=== PATIENT | male | born 1945 | race Caucasian/White ===

== ENCOUNTER 2019-12-03 05:39 | Day surgery (SDC) | payer MEDICARE, OTHER ==
[2019-12-01 16:25] LABS: BASOPHILS % (AUTO) 0.4 % (0-1); EOSINOPHILS # (AUTO) 0.1 X10'3 (0-0.9); EOSINOPHILS % (AUTO) 1.4 % (0-6); LYMPHOCYTES # (AUTO) 1.2 X10'3 (1.1-4.8); LYMPHOCYTES % (AUTO) 25.5 % (21-51); MEAN CORPUSCULAR HEMOGLOBIN 31.5 PG (27.0-31.0); MEAN CORPUSCULAR HGB CONC 34.7 g/dL (33.0-36.5); MEAN CORPUSCULAR VOLUME 90.8 FL (78-98); MEAN PLATELET VOLUME 7.1 FL (7.4-10.4); MONOCYTES # (AUTO) 0.4 X10'3 (0-0.9); MONOCYTES % (AUTO) 7.5 % (2-12); NEUTROPHILS # (AUTO) 3.2 X10'3 (1.8-7.7); NEUTROPHILS % (AUTO) 65.2 % (42-75); PRE OP HEMATOCRIT 39.2 % (42.0-52.0); PRE OP HEMOGLOBIN 13.6 g/dL (14.0-17.9); PRE OP PLATELET COUNT 216 X10'3 (140-440); RED BLOOD COUNT 4.32 X10'6 (4.70-6.10); RED CELL DISTRIBUTION WIDTH 13.1 % (11.5-14.5)
[2019-12-01 16:26] LABS: CLARITY,URINE SLIGHTLY CLOUDY (Clear); COLOR,URINE YELLOW (Yellow); GLUCOSE, URINE NEGATIVE (Neg); KETONES,URINE NEGATIVE (Neg); LEUKOCYTE ESTERASE ,URINE NEGATIVE (Neg); NITRITES, URINE NEGATIVE (Neg); OCCULT BLOOD,URINE NEGATIVE (Neg); PROTEIN,URINE NEGATIVE (Neg); UROBILINOGEN,URINE 0.2 E.U/dL (0.2-1.0)
[2019-12-01 16:30] LABS: UA COLLECTION TYPE VOIDED
[2019-12-01 16:36] LABS: MUCUS STRANDS MANY /LPF (Neg); SQUAMOUS EPITHELIAL CELL,UR FEW /LPF (FEW); TRANSITIONAL EPI CELLS,URINE FEW /HPF
[2019-12-01 16:37] LABS: BACTERIA,URINE NONE SEEN /HPF (Neg); RBC,URINE 0-2 /HPF (0-2); WBC,URINE 0-4 /HPF (0-4)
[2019-12-01 16:43] LABS: ALBUMIN 3.8 G/DL (3.4-5.0); ALBUMIN/GLOBULIN RATIO 1.2 (1.1-1.5); ALKALINE PHOSPHATASE 92 IU/L (46-116); BLOOD UREA NITROGEN 17 MG/DL (7-18); BUN/CREATININE RATIO 18.7 (5.4-32.0); CHLORIDE 107 MMOL/L (99-107); CREATININE 0.91 MG/DL (0.60-1.10); PRE OP ALT 20 U/L (30-65); PRE OP ANION GAP 8 (8-16); PRE OP AST 17 U/L (10-37); PRE OP BILIRUB, TOTAL 0.4 MG/DL (0.0-1.0); PRE OP GLUCOSE 95 MG/DL (70-104); PRE OP POTASSIUM 4.3 MMOL/L (3.4-5.1); PRE OP SODIUM 142 MMOL/L (135-145); TOTAL CARBON DIOXIDE 27.5 MMOL/L (24-32); TOTAL PROTEIN 7.1 G/DL (6.4-8.2); eGFR 81 ML/MIN
[2019-12-03] VITALS (17 sets, daily range): BP systolic 104–141; BP diastolic 63–87
[~2019-12-03] VITALS: Ht 177.8 cm; Wt 109.0 kg
[~2019-12-03 05:39] MED LIST: APIX5TAB3 PO; BUPR75TA3 PO; BUSP5TAB3 PO; CITA40TA11 PO; DOCUMENT DATE & TIME OF BETA-BLOCKER PO ONE; FINA5TAB11 PO; FLO0.4C PO; FLUD0.1T PO; OMEP20CA15 PO; OXYB5TAB16 PO; SIMV40TA PO; SOTA80TA PO; [UNRECOGNIZED DRUG - CODE] PO; cefazolin/dext.iso 2gm/100ml 100 ML IV ONE; famotidine 10mg tablet PO ONE; ringers solution, lacted 1,000 ML IV SCH
[2019-12-03] MEDS ORDERED: LIDOcaine 1% (10mg/ml) 2ml vial ONE (06:10)
[2019-12-03] MEDS ORDERED: BUPIVAcaine/PF 2.5mg/ml (0.25%) 10ml vial ONE (06:44)
[2019-12-03] MEDS ORDERED: ceFAZolin 1000mg inj ONE ×4 (06:44→11:08)
[2019-12-03 07:34] LABS: PRE OP PARTIAL THROMB. TIME 27 SECONDS (22-32)
[2019-12-03] MEDS ORDERED: BUPIVAcaine/PF 2.5 mg/ml (0.25%) 30ml vial ONE ×2 (10:28→10:39)
[2019-12-03] MEDS ORDERED: bacitracin 15gm ointment TP ONE (10:28)
[2019-12-03] MEDS ORDERED: sevoflurane 250ml liquid IH ONE (10:40)
[2019-12-03] MEDS ORDERED: fentaNYL /PF 50mcg/ml 5ml ampule ONE (10:46)
[2019-12-03] MEDS ORDERED: ringers solution, lacted 1,000 ML IV SCH (11:24)
[2019-12-03] MEDS ORDERED: ondansetron/PF 4mg/2ml inj IV PRN (11:25)
[2019-12-03] MEDS ORDERED: HYDROmorphone inj. 0.5 MG/0.5 ML DISP.SYRIN IV PRN (11:25)
[2019-12-03] MEDS ORDERED: ondansetron/PF 4mg/2ml inj ONE (11:30)
[2019-12-03] MEDS ORDERED: rocuronium 10mg/ml inj IV ONE (11:30)
[2019-12-03] MEDS ORDERED: LIDOcaine 2% (20mg/ml) 5ml vial ONE (11:30)
[2019-12-03] MEDS ORDERED: glycopyrrolate 0.2mg/ml inj ONE (11:30)
[2019-12-03] MEDS ORDERED: dexamethasone sod phosphate 4mg/ml inj. ONE (11:30)
[2019-12-03] MEDS ORDERED: neostigmine methylsulfate 1 MG/ML 10ml vial ONE (11:30)
[2019-12-03] MEDS ORDERED: acetaminophen 1,000mg/100ml IV 100 ML IV ONE (11:31)
[2019-12-03] MEDS ORDERED: propofol inj 20 ML IV ONE (11:31)
--- NOTE | 2019-12-03 11:45 | NUR ---
Received from OR via BED , accompanied by Anesthesiologist DR GROSS and report given by Anesthesiolgist. PATIENT WAKING UP, DENIES PAIN, V/S WNL, NEUROVASCULAR CHECKS INTACT, 20G PIV LUE, SCD ON, BANDAIDS TO LAP SIGHTS OF ABDOMEN CDI.
[2019-12-03] MEDS: HYDROmorphone inj. 0.5 MG/0.5 ML DISP.SYRIN IV PRN ×2 (12:24→12:41)
--- NOTE | 2019-12-03 12:34 | NUR ---
SPOKE WITH CHERYL AT DR PRINCE OFFICE WHO STATED SHE WILL SEND SCRIPTS OVER TO PATIENTS REQUESTED PHARMACY AT [facility].
[2019-12-03] MEDS: morphine 4 MG/ML inj SYRINge IV PRN ×2 (13:10→13:13)
--- NOTE | 2019-12-03 13:20 | NUR ---
PATIENT STILL PAINFUL AND UNABLE TO PEE YET. ENCOURAGED FLUIDS AND MEDS GIVEN SEE EMAR
--- NOTE | 2019-12-03 15:35 | NUR ---
PATIENT A&OX4, STATES PAIN WELL CONTROLLED NOW. STATED HE WANTED TO GO HOME BUT WAS UNABLE TO PEE. ORDERS BY DR GREGG TO PLACE [facility] WAS DONE WITH 550CC URINE RETURN PATIENT WAS UNABLE TO PEE. INSTRUCTIONS ON F/C CARE GIVEN TO PATIENT AND FAMILY. 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 PIV D/C. BANDAIDS TO ABDOMEN CDI. PATIENT INSTRUCTED TO SEE DR GREGG IN OFFICE IN 48 HOURS TO HAVE F/C D/C AND STATED HE UNDERSTANDS. HE WAS ALSO INSTRUCTED TO RESTART [facility] IN AM. I HAVE REVIEWED D/C INSTRUCTIONS WITH PATIENT AND FAMILY AND THEY HAVE VERBALIZED UNDERSTANDING. PATIENT D/C HOME WITH ALL BELONGINGS AND FAMILY GAVE TRANSPORT HOME.
== END 2019-12-03 15:35 | disposition home or self-care (01) ==
LOC: PAS 05:39
PROVIDERS: ATTEND Surgery
DX: K42.9 Umbilical hernia without obstruction or gangrene (principal); F43.10 Post-traumatic stress disorder, unspecified; K21.9 Gastro-esophageal reflux disease without esophagitis; I10 Essential (primary) hypertension; G47.33 Obstructive sleep apnea (adult) (pediatric); E78.00 Pure hypercholesterolemia, unspecified; I25.10 Atherosclerotic heart disease of native coronary artery without angina pectoris; I48.91 Unspecified atrial fibrillation; N40.0 Benign prostatic hyperplasia without lower urinary tract symptoms; Z95.0 Presence of cardiac pacemaker; Z98.890 Other specified postprocedural states; Z96.659 Presence of unspecified artificial knee joint; Z88.0 Allergy status to penicillin; Z79.899 Other long term (current) drug therapy; Z72.89 Other problems related to lifestyle; Z80.42 Family history of malignant neoplasm of prostate; Z83.3 Family history of diabetes mellitus
CPT/HCPCS: 36415; 49652; 80053; 81001; 82948; 85025; 85610; 85730; 93005; C1758; C1781; J0131; J0690; J1100; J1170; J2001; J2270; J2405; J2704; J2710; J3010; J3490; J7120; A4215; A4618; A7000

== ENCOUNTER 2024-06-22 10:49 | Emergency (ER) | payer MEDICARE, OTHER ==
[~2024-06-22] VITALS: Ht 177.8 cm; Wt 100.0 kg
[~2024-06-22 10:49] MED LIST changes: -CITA40TA11 PO; +CITA40TA32 PO; -DOCUMENT DATE & TIME OF BETA-BLOCKER PO ONE; -OXYB5TAB16 PO; +OXYB5TAB21 PO; +SIMV-343 PO; -SIMV40TA PO; +[UNRECOGNIZED DRUG - CODE] PO; -[UNRECOGNIZED DRUG - CODE] PO; -cefazolin/dext.iso 2gm/100ml 100 ML IV ONE; -famotidine 10mg tablet PO ONE; -ringers solution, lacted 1,000 ML IV SCH
[2024-06-22 11:59] LABS: BASOPHILS % (AUTO) 0.4 % (0-1); EOSINOPHILS # (AUTO) 0.1 X10'3 (0-0.9); EOSINOPHILS % (AUTO) 2.3 % (0-6); HEMOGLOBIN 12.6 g/dl (14.0-17.9); LYMPHOCYTES # (AUTO) 0.8 X10'3 (1.1-4.8); LYMPHOCYTES % (AUTO) 14.1 % (21-51); MEAN CORPUSCULAR HEMOGLOBIN 30.6 PG (27.0-31.0); MEAN CORPUSCULAR HGB CONC 33.2 g/dL (33.0-36.5); MEAN CORPUSCULAR VOLUME 92.1 FL (78-98); MONOCYTES # (AUTO) 0.4 X10'3 (0-0.9); MONOCYTES % (AUTO) 6.5 % (2-12); NEUTROPHILS # (AUTO) 4.3 X10'3 (1.8-7.7); NEUTROPHILS % (AUTO) 76.7 % (42-75); PLATELET COUNT 165 X10'3 (140-440); RED BLOOD COUNT 4.13 X10'6 (4.70-6.10); RED CELL DISTRIBUTION WIDTH 13.3 % (11.5-14.5); WHITE BLOOD COUNT 5.7 X10'3 (4.5-11.0)
[2024-06-22 12:02] LABS: ALANINE AMINOTRANSFERASE 19 U/L (12-78); ALBUMIN 3.4 G/DL (3.4-5.0); ALKALINE PHOSPHATASE 104 IU/L (46-116); ANION GAP 3 (8-16); ASPARTATE AMINO TRANSFERASE 15 U/L (10-37); BILIRUBIN,TOTAL 0.6 MG/DL (0.1-1.0); BLOOD UREA NITROGEN 22 MG/DL (7-18); BUN/CREATININE RATIO 22.7 (10.0-20.0); CALCIUM 9.2 MG/DL (8.5-10.1); CHLORIDE 105 MMOL/L (99-107); CREATININE 0.97 MG/DL (0.60-1.10); GLUCOSE 116 MG/DL (70-104); POTASSIUM 3.7 MMOL/L (3.5-5.1); SODIUM 138 MMOL/L (135-145); TOTAL PROTEIN 6.9 G/DL (6.4-8.2); eCRCL 62 ML/MIN; eGFR 74 ML/MIN
[2024-06-22 13:00] LABS: BILIRUBIN,URINE NEGATIVE (Neg); CLARITY,URINE CLEAR (Clear); COLOR,URINE YELLOW (Yellow); GLUCOSE, URINE NEGATIVE (Neg); KETONES,URINE NEGATIVE (Neg); LEUKOCYTE ESTERASE ,URINE NEGATIVE (Neg); NITRITES, URINE NEGATIVE (Neg); OCCULT BLOOD,URINE SMALL (Neg); PROTEIN,URINE NEGATIVE (Neg); UROBILINOGEN,URINE 0.2 E.U/dL (0.2-1.0)
[2024-06-22 13:06] LABS: UA COLLECTION TYPE VOIDED
[2024-06-22] MEDS: ondansetron 4mg rapidly disintigrating tab PO ONE (13:13)
[2024-06-22] MEDS: oxyCODONE IR 5mg (immed. release) tablet PO ONE (13:13)
[2024-06-22 13:14] VITALS: BP 121/76; PULSE 87; RESP 16; O2SAT 98
[2024-06-22 13:20] LABS: MUCUS STRANDS FEW /LPF (Neg); SQUAMOUS EPITHELIAL CELL,UR NONE SEEN /LPF (FEW)
[2024-06-22 13:21] LABS: BACTERIA,URINE FEW /HPF (Neg); RBC,URINE 20-50 /HPF (0-2); WBC,URINE 0-4 /HPF (0-4)
[2024-06-22] MEDS ORDERED: OXYC-658 PO ×2 (13:40→15:28)
[2024-06-22 16:33] VITALS: TEMP 98.1
== END 2024-06-22 15:30 | disposition home or self-care (01) ==
LOC: ER 10:50
DX: S33.5XXA Sprain of ligaments of lumbar spine, initial encounter (principal); R40.4 Transient alteration of awareness; Z88.6 Allergy status to analgesic agent; Z79.899 Other long term (current) drug therapy; Z98.890 Other specified postprocedural states; W19.XXXA Unspecified fall, initial encounter; Y93.89 Activity, other specified; Y92.89 Other specified places as the place of occurrence of the external cause; Y99.8 Other external cause status
CPT/HCPCS: 36415; 70450; 72125; 72131; 80053; 81001; 85025; 99285